=== PATIENT | female | born 1960 | race Caucasian/White ===

== ENCOUNTER 2017-10-22 11:21 | Inpatient (IN) | payer MEDICAID ==
[~2017-10-22] VITALS: Ht 154.9 cm; Wt 72.2 kg
[2017-10-22 13:22] LABS: BASOPHIL % 0.3 % (0-2); PLATELET COUNT 306 x10^3mcL (130-400); RED CELL DISTRIBUTION WIDTH 13.3 % (11.5-14.5)
[2017-10-22 13:42] LABS: CALCIUM 8.6 mg/dL (8.5-10.1); CARBON DIOXIDE 28.3 mmol/L (21-32); CHLORIDE SERUM 104 mmol/L (98-107); CREATININE SERUM 0.7 mg/dL (0.6-1.0); GFR1 > 60 mL/min; GLUCOSE SERUM 91 mg/dL (74-106); POTASSIUM SERUM 4.3 mmol/L (3.5-5.1); SODIUM SERUM 141 mmol/L (136-145)
[2017-10-22 13:46] LABS: ALKALINE PHOSPHATASE 73 U/L (46-116); ALT/SGPT 25 U/L (14-59); AST/SGOT 21 U/L (15-37); BILIRUBIN TOTAL 0.8 mg/dL (0.20-1.00); LIPASE 106 IU/L (73-393); TOTAL PROTEIN, SERUM 7.3 g/dL (6.4-8.2)
[2017-10-22 13:49] LABS: ALBUMIN 3.3 g/dL (3.4-5.0)
[2017-10-22] MEDS ORDERED: COLACE100 MG PO (16:00)
[2017-10-22] MEDS ORDERED: CYCLOBENZAPRINE10 MG PO (16:00)
[2017-10-22 16:52] VITALS: BP 136/79
[2017-10-22 17:00] LABS: UA SPECIFIC GRAVITY <=1.005 (1.005-1.035); microscopic required? YES; urine erythrocyte TRACE (NEGATIVE)
[2017-10-22 18:07] LABS: AMPHETAMINE QUAL UR NONE DETECTED (NEG <=1000)
[2017-10-22 20:08] LABS: MAGNESIUM 2.2 mg/dL (1.8-2.4)
[2017-10-22 20:10] LABS: T3 TOTAL 1.02 ng/mL
[2017-10-22 20:13] LABS: CHOLESTEROL/HDL RATIO 3.4
[2017-10-22 21:29] LABS: FREE T4 1.19 ng/dL (0.76-1.46); FREE THYROXINE INDEX 3.3 ug/dL (1.4-4.5); T4(THYROXINE) 9.4 ug/dL (4.7-13.3)
[2017-10-22 21:53] VITALS: BP 117/71
[2017-10-23 06:47] VITALS: BP 120/82
[2017-10-23 07:18] LABS: BASOPHIL % 0.2 % (0-2); PLATELET COUNT 295 x10^3mcL (130-400)
[2017-10-23 07:52] LABS: CALCIUM 8.3 mg/dL (8.5-10.1); CARBON DIOXIDE 25.1 mmol/L (21-32); CHLORIDE SERUM 106 mmol/L (98-107); CREATININE SERUM 0.5 mg/dL (0.6-1.0); GFR1 > 60 mL/min; GLUCOSE SERUM 71 mg/dL (74-106); POTASSIUM SERUM 3.7 mmol/L (3.5-5.1); SODIUM SERUM 141 mmol/L (136-145)
[2017-10-23 11:58] VITALS: BP 140/71
[2017-10-23 14:24] VITALS: BP 104/68
[2017-10-23] MEDS ORDERED: MIRALAX17 GM/Dose PO (17:08)
[2017-10-23] MEDS ORDERED: GAS RELIEF80 MG PO (17:08)
[2017-10-23] MEDS ORDERED: APAP500 MG PO (17:10)
[2017-10-23] MEDS ORDERED: LEVAQUIN750 MG PO (17:18)
[2017-10-23] MEDS ORDERED: BD LACTINEX1.4 MG PO (17:22)
[2017-10-23 17:27] VITALS: BP 104/68
[2017-10-23] MEDS ORDERED: ACETAMINOPHEN A1 TAB PO (17:37)
[2017-10-23 19:28] VITALS: BP 115/66
== END 2017-10-23 20:51 | disposition home or self-care (01) | DRG 247 ==
LOC: ED 11:21 → DU 16:01
PROVIDERS: Emergency Medicine; Family Medicine Sports Medicine
DX: K56.7 Ileus, unspecified (principal); J18.9 Pneumonia, unspecified organism; E44.0 Moderate protein-calorie malnutrition; N39.0 Urinary tract infection, site not specified; R31.9 Hematuria, unspecified; E78.2 Mixed hyperlipidemia; D64.9 Anemia, unspecified; E66.9 Obesity, unspecified; Z68.30 Body mass index [BMI] 30.0-30.9, adult; Z98.890 Other specified postprocedural states
CPT/HCPCS: 83880; 84439; J1885; J1956; J2550; J3010; J7030; Q0092; Q0169; Q9967